=== PATIENT | female | born 1945 | race Caucasian/White ===

== ENCOUNTER → 2016-10-05 09:21 | Outpatient (CLI) | payer MEDICARE, OTHER ==
[2010-04-02 09:20] VITALS: BMI 41.0
== END | disposition home or self-care (01) ==
LOC: D.RT 09:21
DX: J44.9 Chronic obstructive pulmonary disease, unspecified (principal)

== ENCOUNTER → 2016-11-06 08:38 | Outpatient (CLI) | payer MEDICARE, OTHER ==
[2010-04-02 09:20] VITALS: BMI 41.0
== END | disposition home or self-care (01) ==
LOC: D.CT 11-04 13:30
DX: K43.2 Incisional hernia without obstruction or gangrene (principal)

== ENCOUNTER 2017-05-14 06:52 | Day surgery (SDC) | payer MEDICARE, OTHER ==
[2017-05-14 08:34] LABS: BASOPHILS 0.5 % (0-2); EOSINOPHILS 3.6 % (0-7); HEMATOCRIT 38.8 % (36.0-48.0); HEMOGLOBIN 12.7 g/dL (12-16); IMMATURE GRANULOCYTES 0.3 % (0-5); LYMPHOCYTES 26.8 % (15-50); MCH 29.6 pg (26.0-34.0); MCHC 32.7 g/dL (31.0-37.0); MCV 90.4 fL (80.0-100.0); NEUTROPHILS 57.8 % (40-80); RBC 4.29 10x6/uL (4.00-5.40); WBC 7.5 10x3/uL (4.8-10.8)
[2017-05-14 08:50] LABS: ANION GAP 10.4 mmol/L (8-16); CALCIUM 9.1 mg/dL (8.5-10.1); CARBON DIOXIDE 30.8 mmol/L (21.0-32.0); POTASSIUM - SERUM 3.2 mmol/L (3.5-5.1)
[2017-05-14 08:57] LABS: PLATELET COUNT 268 10x3/uL (130-400)
[2017-05-14 09:00] LABS: INR 1.07 (0.85-1.17); PROTIME 13.8 SECONDS (11.6-15.0)
[2017-05-14 09:01] LABS: APTT 29.9 SECONDS (22.8-39.4)
[2017-05-14] MEDS ORDERED: OMEPRAZOLE20 M1 PO (12:24)
[2017-05-14] MEDS ORDERED: HYDROCODON-ACE1 EAC7 PO (12:26)
[2017-05-14] MEDS ORDERED: FUROSEMIDE40 MG PO (12:27)
[2017-05-14] MEDS ORDERED: CALAN SR240 MG PO (12:27)
[2017-05-14] MEDS ORDERED: DIOVAN HCT 160/1 TAB PO (12:28)
[2017-05-14] MEDS ORDERED: GLUCOPHAGE500 MG PO (12:28)
[2017-05-14] MEDS ORDERED: K-DUR20 MEQ PO (12:28)
[2017-05-14] MEDS ORDERED: SINGULAIR10 MG PO (12:28)
[2017-05-14 12:30] VITALS: BP 100/9; BMI 38.4
--- NOTE | 2017-05-14 18:08 | NUR ---
1750 BACK FROM VENTRAL HERNIA REPAIR. RESP EVEN AND NONLABORED. DRESSINGS X 4 TO ABDOMEN AND 2 AREAS CIRCLED SCANT AMT OLD BLOOD TO UPPER DRESSING SITES. WEARING ABDOMINAL BINDER AND ICE TO ABDOMEN. EATING ICE CHIPS.TOLD PATIENT AND FAMILY ONLY CLEAR LIQUIDS TODAY AND SOLIDS TOMORROW. DR. FRAGA GAVE SCRIPT TO FAMILY FOR TORODOL AND PHENERGAN AND THEY WENT TO FILL IT SO DONT HAVE IT TO COPY.
--- NOTE | 2017-05-14 19:00 | NUR ---
1820 UP IN ROOM TO THE BATHROOM 4 INCISION SITES THE SAME ABDOMINAL BINDER ON.
--- NOTE | 2017-05-14 19:46 | NUR ---
1850 V/S TAKEN NO CHANGE IN ABDOMEN INCISION SITES. WEARING ABDOMINAL BINDER. IV DCD CATHETWER INTACT. WENT OVER DISCHARGE INSTRUCTIONS AND VERBALLY UNDERSTANDS. TOLD TO HOLD ABDOMEN WHEN COGHING AND DEEP BREATHING OR SNEEZING. ASSISTED WITH DRESSING.
--- NOTE | 2017-05-14 19:48 | NUR ---
1899 DISCHARGED TO HOME VIA W/C WITH FAMILY.
--- NOTE | 2017-05-18 15:51 | OP ---
PATIENT NAME: JAYDE ARMENTA MEDICAL RECORD: [id number] :45 [facility] ADMISSION DATE: SURGEON: MERNA FRAGA MD DATE OF OPERATION: 05/14/2017 REFERRING PHYSICIAN: Ismael Cain MD SURGEON: Merna Fraga MD ANESTHESIA: General endotracheal per POINT OF CARE TECHNICIAN and Shai King MD PREOPERATIVE DIAGNOSIS: Incarcerated recurrent abdominal incisional hernia without obstruction or gangrene. POSTOPERATIVE DIAGNOSIS: Incarcerated recurrent abdominal incisional hernia containing partially obstructed small intestinal loops without gangrene, perforation, or complete obstruction. OPERATION PERFORMED: Laparoscopic repair. PREOPERATIVE NOTE: Ms. Armenta is a 71-year-old morbidly obese, diabetic, and hypertensive white female with coronary artery disease and type 2 diabetes, who has had a periumbilical hernia become incarcerated and she required an emergency repair, I believe, in 2015. That hernia was not repaired at that time with any prosthetic mesh and it has perhaps predictably recurred. She is very symptomatic with it, though she is not having nausea or vomiting. The hernia is irreducible, seemingly about the size of a tennis ball and minimally tender. She is to have an elective laparoscopic repair today. DESCRIPTION OF PROCEDURE: Under general endotracheal anesthesia, the patient was prepped and draped in a sterile manner. She was catheterized and the Tejeda catheter removed after the procedure was completed. She was given vancomycin 1 gram as prophylactic antibiotic as she has a history of ALLERGY TO PENICILLIN. The abdomen was accessed with a 5-mm XL Optiview port and a 5-mm 0-degree scope through an incision in the left upper quadrant. The abdomen was insufflated with carbon dioxide and then two additional 5-mm ports were placed at the level of the umbilicus in the anterior axillary line and in the left lower quadrant. The 5-mm port in the left upper quadrant was exchanged for a 12-mm port. The patient was found to have spontaneously reduced hernia on induction of anesthesia. She appeared to have a single band adhesion from the anterior abdominal wall hernia defect down to the small intestine. There was a segment of small intestine, which was inflamed and obviously had been chronically incarcerated. There was no evidence of perforation, abscess, gangrene, or impending perforation. I did not think it was necessary to resect the bowel. There were no other abnormalities identified on review of the visual abdominal structures. The hernia defect proved to be about 8 cm in diameter. I chose a 15-cm diameter Bard Ventralight ST mesh with Echo PS positioning system. This was rolled up and inserted into the abdomen through the left upper quadrant 12-mm port. The inflation tubing was grasped with a David-Skylar suture passer inserted through a small josé antonio in the skin overlying the hernia defect. The positioning system was inflated and the mesh pulled up against the anterior abdominal wall. It very nicely and adequately covered the defect with ample overlap. It was then fixed with 30 Bard OptiFix tacks and the balloon system removed. The positioning of the mesh and its security appeared excellent. The 12-mm port was removed after again examining the abdomen to be certain if there OPERATIVE REPORT [id number] JAYDE ARMENTA T were no inadvertent or unseen injuries to any intraabdominal viscera. The David-Skylar suture passer and #0 Vicryl were used to close the fascia of the left upper quadrant incision with a simple stitch. The wounds were all infiltrated with Marcaine 0.25% without epinephrine and the 5-mm ports removed after allowing the carbon dioxide to escape and watching the mesh and the anterior abdominal wall collapse with the mesh remaining in good position. The wounds were closed with interrupted-inverted 4-0 Monocryl suture and Dermabond glue. The incisions and the small puncture over the hernia defect were dressed with Maxorb Ag, Tegaderm, and Cavilon skin prep. The patient was awakened and extubated. Her Tejeda catheter was removed and she was taken to the recovery room. She was given 30 mg of Toradol parenterally in the operating room per Dr. King at my request. The patient will be observed in the outpatient area and hopefully, if she feels well and is able to tolerate liquids, will be able to go home this evening. She will continue all of her home medications, which I believe include hydrocodone. I am giving her prescriptions for Toradol 10 mg tablets, #10 of them, she can take one every 6 hours p.r.n. pain; and Phenergan 25 mg tablets, #10 of them, she can take one q. 6 hours p.r.n. nausea. I have asked that she call my office on Wednesday and ask for time to come in to see me in the office on Wednesday. She is given my personal cell telephone number so that if she needs, she can reach me afterhours and over the weekend. All sponges, instruments, and needles were accounted for. No drain was used. No surgical specimen was submitted for histopathology. Blood loss was nil. TRANSINT:[id number] Voice Confirmation ID: [id number] DOCUMENT ID: [id number] MERNA FRAGA MD at 1551 CC: ISMAEL CAIN MD [id number] DICTATION DATE: 05/14/171727 GARMENT LINER: 05/14/172235 [facility] 05/14/17 [facility] [address] [place] [address]
== END 2017-05-14 19:00 | disposition home or self-care (01) ==
LOC: D.OPS 06:52
PROVIDERS: Surgery
DX: K43.0 Incisional hernia with obstruction, without gangrene (principal); E66.01 Morbid (severe) obesity due to excess calories; Z68.38 Body mass index [BMI] 38.0-38.9, adult; E11.9 Type 2 diabetes mellitus without complications; I10 Essential (primary) hypertension; I25.10 Atherosclerotic heart disease of native coronary artery without angina pectoris; K44.9 Diaphragmatic hernia without obstruction or gangrene; G47.30 Sleep apnea, unspecified; J45.909 Unspecified asthma, uncomplicated; Z01.812 Encounter for preprocedural laboratory examination

== ENCOUNTER 2018-06-13 05:55 | Day surgery (SDC) | payer MEDICARE, OTHER ==
[~2018-06-13] VITALS: Ht 170.2 cm; Wt 113.6 kg
[~2018-06-13 05:55] MED LIST: CALAN SR240 MG PO; DIOVAN HCT 160/1 TAB PO; FUROSEMIDE40 MG PO; GLUCOPHAGE500 MG PO; HYDROCODON-ACE1 EAC7 PO; K-DUR20 MEQ PO; OMEPRAZOLE20 M1 PO; SINGULAIR10 MG PO
[2018-06-13 06:47] LABS: HEMATOCRIT 41.7 % (36.0-48.0); HEMOGLOBIN 13.6 g/dL (12-16); MCH 30.2 pg (26.0-34.0); MCHC 32.6 g/dL (31.0-37.0); MCV 92.7 fL (80.0-100.0); MEAN PLATELET VOLUME 9.1 fL (7.4-10.4); RBC 4.5 10x6/uL (4.00-5.40); RDW 14.7 % (11.5-14.5); WBC 5.9 10x3/uL (4.8-10.8)
[2018-06-13 06:50] LABS: POTASSIUM - SERUM 3.7 mmol/L (3.5-5.1)
[2018-06-13 07:02] LABS: CALC OSMOLALITY 282 mosm/kg (275-300); CALCIUM 8.3 mg/dL (8.5-10.1); CHLORIDE - SERUM 107 mmol/L (98-107); CREATININE - SERUM 0.7 mg/dL (0.6-1.3); GLUCOSE 129 mg/dL (74-106); SODIUM 142 mmol/L (136-145); UREA NITROGEN 8 mg/dL (7-18); eGFR NON AFRICAN AMERICAN 87 mL/min (90-120)
[2018-06-13 07:09] VITALS: BP 134/69; Ht 170.2 cm; Wt 113.6 kg
== END 2018-06-13 10:08 | disposition home or self-care (01) ==
LOC: D.OPS 05:55
PROVIDERS: Anesthesiology
DX: Z12.11 Encounter for screening for malignant neoplasm of colon (principal); K57.30 Diverticulosis of large intestine without perforation or abscess without bleeding; K63.5 Polyp of colon; D12.3 Benign neoplasm of transverse colon; K64.8 Other hemorrhoids; Z01.812 Encounter for preprocedural laboratory examination

== ENCOUNTER 2019-03-21 16:00 | Outpatient (CLI) | payer MEDICARE, OTHER ==
[2018-06-13 07:09] VITALS: BMI 39.2
== END 2019-03-21 16:30 | disposition home or self-care (01) ==
LOC: D.MAMMO 16:00
PROVIDERS: ATTEND Family Medicine
DX: Z12.31 Encounter for screening mammogram for malignant neoplasm of breast (principal)

== ENCOUNTER → 2019-04-13 09:52 | Outpatient (CLI) | payer MEDICARE, OTHER ==
[2018-06-13 07:09] VITALS: BMI 39.2
--- NOTE | 2019-04-18 13:08 | EC ---
PATIENT:JAYDE PORTILLO DATE OF SERVICE: 04/13/19 SEX: F MEDICAL RECORD: [id number] DATE OF : 45 [facility] AGE OF PATIENT: 73 ADMISSION DATE: 04/13/19 REFERRING PHYSICIAN: INTERPRETING PHYSICIAN: DARIUSZ ROSEN MD ECHOCARDIOGRAM REPORT ECHO CHARGES 4 ECHO COMPLETE Date: 04/13/19 CLINICAL DIAGNOSIS: A-FIB H/O HTN ECHOCARDIOGRAPHIC MEASUREMENTS (adult normal given) AC root (d.<3.7cm) 3.4 cm LV Septum d (<1.2 cm> 1.8 cm Valve Excursion 2.0 cm LV Septum (systole) 2.4 cm Left Atria (s.<4.0cm> 5.0 cm LVPW d(<1.2cm) 1.8 cm RV (d.<2.3cm) 2.9 cm LVPW (sytole) 2.4 cm LV diastole(<5.6CM) 5.5 cm MV E-F(>70mm/sec) cm LV systole 3.3 cm LVOT Diameter 2.2 cm MV exc.(>10mm) cm Est.ejection fraction (50-75%) % DOPPLER: LVIT cm/sec A 113 cm/sec E 68.0 cm/sec LA cm/sec RVSP 16.2 mmHg LVOT 134 cm/sec AOP1/2T m/s Asc. Ao 181 cm/sec RVOT 83.0 cm/sec RA cm/sec PA 80.0 cm/sec AV Gradient Peak 13.0 mmHg AV Mean 6.8 mmHg AV Area 2.3 cm MV Gradient Peak 5.6 mmHg MV Mean 1.9 mmHg MV Area cm COMMENTS: OP - HC Display Carver: 1 LOUISE OPAL Diesel Engine Fitter: 3 Dr. Johnson TAPE# PACS Pericardial Effusion N DATE OF SERVICE: Adequate 2D, color flow, spectral Doppler, and M-mode LVH is present. LV internal dimension is normal. Wall motion is normal. EF is greater than or equal to 55%. Aortic valve is tricuspid. No evidence of stenosis by Doppler interrogation. Left atrium is dilated to 5.0 cm. Mitral valve shows no prolapse. Mild MR. Right-sided chambers are grossly normal. Trace TR. ECHOCARDIOGRAM REPORT [id number] JAYDE PORTILLO TRANSINT:[id number] Voice Confirmation ID: [id number] DOCUMENT ID: [id number] DARIUSZ ROSEN MD at 1308 CC: [id number] DICTATION DATE: 04/17/19 1317 FITNESS ASSISTANT: 04/17/191958 DEP CLI 04/13/19 [place] [id number] [place] [id number]
== END | disposition home or self-care (01) ==
LOC: D.HCCECHO 09:52 → D.HCCARDIO 10:00 → D.HCCECHO 10:00
PROVIDERS: ATTEND Internal Medicine Interventional Cardiology
DX: I10 Essential (primary) hypertension (principal)

== ENCOUNTER → 2020-04-16 09:57 | Outpatient (CLI) | payer MEDICARE, OTHER ==
[2018-06-13 07:09] VITALS: BMI 39.2
== END | disposition home or self-care (01) ==
LOC: D.HCCECHO 09:57
PROVIDERS: ATTEND Internal Medicine Interventional Cardiology
DX: I48.91 Unspecified atrial fibrillation (principal)

== ENCOUNTER → 2020-04-24 13:35 | Outpatient (CLI) | payer MEDICARE, OTHER ==
[2018-06-13 07:09] VITALS: BMI 39.2
== END | disposition home or self-care (01) ==
LOC: D.LAB 13:35
PROVIDERS: ATTEND Internal Medicine Pulmonary Disease
DX: Z12.31 Encounter for screening mammogram for malignant neoplasm of breast (principal)

== ENCOUNTER → 2020-04-29 10:39 | Outpatient (CLI) | payer MEDICARE, OTHER ==
[2018-06-13 07:09] VITALS: BMI 39.2
== END | disposition home or self-care (01) ==
LOC: D.RT 10:39
PROVIDERS: ATTEND Internal Medicine Pulmonary Disease
DX: J45.909 Unspecified asthma, uncomplicated (principal)